=== PATIENT | male | born 1975 | race African-American/Black ===

== ENCOUNTER → 2016-06-04 | Outpatient (CLI) | payer OTHER ==
[2016-06-04 11:16] LABS: HEMATOCRIT 43.7 % (42.0-52.0); HEMOGLOBIN 16.1 g/dl (13.5-18.0); MEAN CELL VOLUME 89 fl (80.0-100.0); MEAN CORPUSCULAR HEMOGLOBIN 33 pg (27.0-31.0); MEAN CORPUSCULAR HGB CONC 37 g/dl (33.0-37.0); MEAN PLATELET VOLUME 10.4 fl (7.4-10.4); PLATELET COUNT 200 K/mm3 (130-400); RED BLOOD COUNT 4.91 M/mm3 (4.20-5.60); REDCELL DISTRIBUTION WIDTH-CV 11.8 % (11.5-14.5)
[2016-06-04 11:34] LABS: CALCIUM 9.5 mg/dL (8.4-10.2); CREATININE, serum 1.29 mg/dL (0.66-1.25); POTASSIUM 3.9 mmol/L (3.4-5.0)
[2016-06-04 11:46] LABS: TROPONIN-I 0.032 ng/mL (0.000-0.034)
== END ==
LOC: COL.LAB 10:48
PROVIDERS: Internal Medicine Interventional Cardiology
DX: R07.89 Other chest pain (principal)